=== PATIENT | female | born 1995 | race Caucasian/White ===

== ENCOUNTER 2024-04-13 08:16 | Inpatient (IN) | payer BC ==
[~2024-04-13] VITALS: Ht 162.6 cm; Wt 75.5 kg
[2024-04-13] VITALS (14 sets, daily range): BP systolic 105–153; BP diastolic 55–88; PULSE 16–140; TEMP 98.3–98.4
[2024-04-13] MEDS ORDERED: LR 1,000 ML IV PRN (08:45)
[2024-04-13] MEDS ORDERED: PRENATAL (09:05)
[2024-04-13] MEDS ORDERED: LR & Oxytocin 500 ML IV SCH (09:45)
[2024-04-13 11:00] LABS: BASO % 0.3 % (0.0-2.0); EOS # 0.1 K/mm3 (0.0-0.7); EOS % 0.5 % (0.0-4.0); GRAN # 10.4 K/mm3 (1.4-6.5); GRAN % 80.3 % (42.2-75.2); HEMATOCRIT 37.8 % (37.0-47.0); HEMOGLOBIN 12.2 g/dl (12.5-16.0); LYMPH # 1.8 K/mm3 (1.2-3.4); LYMPH % 14.1 % (20.0-51.0); MEAN CELL VOLUME 87 fl (80.0-100.0); MEAN CORPUSCULAR HEMOGLOBIN 28 pg (27-31); MEAN CORPUSCULAR HGB CONC 32 g/dl (33.0-37.0); MEAN PLATELET VOLUME 10.7 fl (7.4-10.4); MONO # 0.6 K/mm3 (0.1-0.6); MONO % 4.3 % (1.7-9.3); PLATELET COUNT 265 K/mm3 (130-400); RED BLOOD COUNT 4.33 M/mm3 (4.10-5.30); REDCELL DISTRIBUTION WIDTH-CV 15.9 % (11.5-14.5)
[2024-04-13] MEDS ORDERED: Loratadine 10 MG TAB PO PRN (15:30)
[2024-04-13] MEDS ORDERED: Magnes Hydrox (MOM) 80 MG/ML 30 ML CUP PO PRN (15:30)
[2024-04-13] MEDS ORDERED: Phenylephrine/Mineral Oil/Petrolatum 57 GM TUBE RC PRN (16:30)
[2024-04-13] MEDS ORDERED: oxyCODONE 5 MG TAB PO PRN (16:30)
[2024-04-13] MEDS ORDERED: Ibuprofen 800 MG TAB PO SCH (16:30)
[2024-04-13] MEDS ORDERED: Witch Hazel 50% Pads Bulk TUB TP PRN (16:30)
[2024-04-13] MEDS ORDERED: Measles/Mumps/Rubella Virus Vaccine Live w Diluent 0.5 ML VIAL SQ SCH (16:30)
[2024-04-13] MEDS ORDERED: Naloxone 0.4 MG/ML VIAL IV PRN (16:30)
[2024-04-13] MEDS ORDERED: Mag/Al Hydrox/Simeth Susp 30 ML CUP PO PRN (16:30)
[2024-04-13] MEDS ORDERED: Acetaminophen 500 MG TAB PO SCH (16:30)
[2024-04-13] MEDS ORDERED: Sennosides/Docusate 8.6-50 MG TAB PO SCH (17:00)
--- NOTE | 2024-04-13 19:15 | NUR ---
Pt in bathroom, states "I mush have taken my peribottle out of my supplies at home and didn't bring it" peribottle provided. Urine collection 'hat' noted on floor beside toilet. Pt reminded that we need to measure 2 more voids , pointing to the collection 'hat'. Pt's states "Oh, I took that out it was in the way."
[2024-04-13] MEDS ORDERED: traZODone 50 MG TAB PO PRN (21:00)
[2024-04-14 01:00] VITALS: BP 113/58; PULSE 96; TEMP 97.5
[2024-04-14 07:16] VITALS: BP 104/57; PULSE 60; TEMP 98
[2024-04-14] MEDS ORDERED: IBU800 M1 PO (08:40)
[2024-04-14 17:00] VITALS: BP 108/58; PULSE 75; TEMP 98.2
[2024-04-14 20:00] VITALS: BP 116/67; PULSE 82; TEMP 98
[2024-04-15 08:45] VITALS: BP 122/66; PULSE 60; TEMP 97.8
--- NOTE | 2024-04-15 14:40 | NUR ---
1425 Pt given both written and verbal discharge instructions. Pt encouraged to keep all scheduled follow up appointments. Pt educated on warning signs. Pt verbalizes understanding and has no questions at this time.
== END 2024-04-15 15:00 | disposition home or self-care (01) | DRG 807 ==
LOC: LDRO 08:16 → LDR 09:30 → OB 17:34
PROVIDERS: Obstetrics & Gynecology; ADMIT Obstetrics & Gynecology
PROC: 10E0XZZ Delivery of Products of Conception, External Approach (ICD-10-PCS; principal; 2024-04-13)
PROC: 0UQMXZZ Repair Vulva, External Approach (ICD-10-PCS; 2024-04-13)
DX: O99.02 Anemia complicating childbirth (principal); Z37.0 Single live birth; Z3A.39 39 weeks gestation of pregnancy; O70.0 First degree perineal laceration during delivery; D64.9 Anemia, unspecified
CPT/HCPCS: J2590; J7120